=== PATIENT | male | born 1995 | race Caucasian/White ===

== ENCOUNTER 2016-11-08 11:18 | Emergency (ER) | payer OTHER ==
[~2016-11-08] VITALS: Ht 188 cm; Wt 61.2 kg
[2016-11-08 11:36] VITALS: BP 119/72
--- NOTE | 2016-11-08 12:07 | NUR ---
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
--- NOTE | 2016-11-08 12:45 | NUR ---
amanda speaking with at this time
== END 2016-11-08 12:49 | disposition home or self-care (01) ==
LOC: ER 11:21
DX: T76.21XA Adult sexual abuse, suspected, initial encounter (principal); Y92.89 Other specified places as the place of occurrence of the external cause
CPT/HCPCS: 99283; A4606; Z7610